=== PATIENT | female | born 1945 | race Caucasian/White ===

== ENCOUNTER 2018-12-01 08:45 | Outpatient (CLI) | payer MEDICARE ==
--- NOTE | 2018-12-01 09:50 | ULT ---
THYROID ULTRASOUND INDICATION: Thyroid abnormality is identified at a separate Hospital TECHNIQUE: Grayscale and color Doppler images were obtained of the thyroid gland. COMPARISON: None FINDINGS: Right thyroid lobe: The right thyroid lobe measures 4.4 x 1.4 x 1.8 cm. There is a 1.1 x 0.9 x 0.8 cm hypoechoic solid mass within the mid to upper pole of the right thyroid lobe consistent with a TIRADS 4 lesion. There is a 1.5 x 1.2 x 0.7 cm solid hypoechoic solid nodule with punctate internal e chogenic foci within the mid to lower pole of the right thyroid lobe. Consistent with a TIRADS 5 lesion. Thyroid isthmus: The thyroid isthmus measures 0.49 cm. Left thyroid lobe: The left thyroid lobe measures 4.5 x 2.3 x 1.9 cm. There is a 2.8 x 2.4 x 1.3 cm m ixed solid and cystic mass involving the mid to superior pole of the left thyroid gland with macrocalcifications. This is consistent with a TIRADS 4 lesion. There is a 1.0 x 0.7 x 0.6 cm hypoech oic solid mass within the lower pole of the left thyroid gland. This is consistent with a TIRADS 4 lesion. IMPRESSION: 1. 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 Recommend ultrasound-guided FN A. 2. TIRADS 4 lesion of the mid to superior pole of the left thyroid gland. In light of its size, ultra sound-guided FNA is recommended. 3. TIRADS 4 lesion of the mid to upper pole of the right thyroid lobe. With its size, follow-up ultra sound in one year is recommended. 4. TIRADS 4 lesion of the lower pole of the left thyroid lobe. Follow-up ultrasound in one year is re commended.
--- NOTE | 2018-12-02 13:36 | MMO ---
Bilateral MAMMO Bilat Screen DDI. CLINICAL HISTORY: Patient is 73 years old and is seen for screening. The patient has no family history of breast cancer. The patient has no personal history of cancer. VIEWS: The views performed were: bilateral craniocaudal and bilateral mediolateral oblique. FILMS COMPARED: The present examination has been compared to prior imaging studies performed at [facility] on 02/26/2005, 02/24/2008 and 03/21/2009. This study has been interpreted with the assistance of computer-aided detection. MAMMOGRAM FINDINGS: There are scattered fibroglandular densities. There are no suspicious masses, suspicious calcifications, or new areas of architectural distortion. IMPRESSION: THERE IS NO MAMMOGRAPHIC EVIDENCE OF MALIGNANCY. A ROUTINE FOLLOW-UP MAMMOGRAM IN 1 YEAR IS RECOMMENDED. ACR BI-RADS Category 1 - Negative MAMMOGRAPHY NOTE: 1. A negative mammogram report should not delay a biopsy if a dominant of clinically suspicious mass is present. 2. Approximately 10% to 15% of breast cancers are not detected by mammography. 3. Adenosis and dense breasts may obscure an underlying neoplasm. Reported by: CANELO SCHULER MD Electonically Signed: [id number]
== END 2018-12-01 08:46 | disposition home or self-care (01) ==
LOC: SCSMAMMO 08:45
PROVIDERS: ATTEND Family Medicine
DX: Z12.31 Encounter for screening mammogram for malignant neoplasm of breast (principal); E04.1 Nontoxic single thyroid nodule
CPT/HCPCS: 76536; 77067

== ENCOUNTER 2018-12-15 12:19 | Day surgery (SDC) | payer MEDICARE ==
[2018-12-14 11:35] VITALS: BMI 36.0
[2018-12-15] MEDS ORDERED: Sodium Bicarbonate 2.5 MEQ/5 ML VIAL ONE (12:39)
[2018-12-15] MEDS ORDERED: Lidocaine 1% PF 5 ML VIAL ONE (12:39)
[2018-12-15 15:10] VITALS: BP 120/64; TEMP 97.5
--- NOTE | 2018-12-15 15:35 | ULT ---
PROCEDURE: ULTRASOUND GUIDED THYROID NODULE FNA TIMES 3: INDICATION: Previous thyroid ultrasound described bilateral thyroid nodules. Two dominant nodules in the right l obe are seen, one superior and one inferior. A larger dominant nodule in the left superior lobe was seen. All 3 of these nodules are biopsied using ultrasound-guided FNA. FINDINGS: 1. The 1 cm nodule superior right lobe is sampled with fine needle aspiration x 2 using 25-gauge nee dle. Ultrasound sample given to fiberglass technician. 2. The 1 cm nodule in the inferior right lobe sampled with FNA using a 25-gauge needle. Two specime ns were obtained and given to fiberglass technician. 3. The large irregularly shaped nodule in the left lobe measuring up to 3 cm is sampled with FNA usi ng a 25-gauge needle. Three samples were obtained and given to the fiberglass technician. Post procedure ultrasound showed no evidence of hematoma or bleeding. PROCEDURE NOTE: The anterior neck is prepped and draped in a sterile manner. Two nodules in the right lobe are ident ified for biopsy. Anesthesia was administered for each nodule with Lidocaine and bicarb under ultras ound guidance. The superior nodule on the right was sampled first with FNA using ultrasound guidance . The inferior nodule on the right was then sampled x 2 with a 25-gauge needle with ultrasound guidance . Ultrasound confirmed sampling of both nodules. The large left lobe nodule was then sampled with a 25-gauge FNA x 3. The patient tolerated the procedure well and there were no problems or complications. The patient wi ll followup with her primary physician for pathology report. POS: [facility]
== END 2018-12-15 14:10 | disposition home or self-care (01) ==
LOC: ULT 12:19
PROVIDERS: ATTEND Family Medicine
DX: E04.2 Nontoxic multinodular goiter (principal); I11.0 Hypertensive heart disease with heart failure; I50.30 Unspecified diastolic (congestive) heart failure; M54.12 Radiculopathy, cervical region; M75.02 Adhesive capsulitis of left shoulder; F32.4 Major depressive disorder, single episode, in partial remission; E78.5 Hyperlipidemia, unspecified; Z79.82 Long term (current) use of aspirin; Z79.899 Other long term (current) drug therapy; Z91.011 Allergy to milk products
CPT/HCPCS: 60100; 76942; 88173; 88305; J2001